=== PATIENT | female | born 1990 | race African-American/Black ===

== ENCOUNTER 2016-05-13 10:13 | Emergency (ER) | payer BC ==
[~2016-05-13 10:13] MED LIST: JOLIVETTE0.35 MG PO; PROAIR HFA INH
== END 2016-05-13 11:39 | disposition home or self-care (01) ==
LOC: ER 10:13
DX: M54.16 Radiculopathy, lumbar region (principal); Z79.899 Other long term (current) drug therapy
CPT/HCPCS: 96374; 99283; J1170; J2800; J2930

== ENCOUNTER 2016-06-18 08:55 | Emergency (ER) | payer BC | END 2016-06-18 10:00 | disposition home or self-care (01) | LOC: ER 08:55 | DX: M54.42 Lumbago with sciatica, left side (principal); J45.909 Unspecified asthma, uncomplicated; F17.200 Nicotine dependence, unspecified, uncomplicated; Z79.899 Other long term (current) drug therapy | CPT/HCPCS: 96372; 99283; J1885 ==